=== PATIENT | female | born 1970 | race Caucasian/White ===

== ENCOUNTER 2017-01-27 20:27 | Emergency (ER) | payer MEDICARE | END 2017-01-27 20:37 | disposition left against medical advice (07) | LOC: ER 20:27 | DX: S40.022A Contusion of left upper arm, initial encounter (principal); W21.03XA Struck by baseball, initial encounter; Y92.320 Baseball field as the place of occurrence of the external cause; Z79.899 Other long term (current) drug therapy | CPT/HCPCS: 99282; 99283 ==